=== PATIENT | male | born 1965 | race Caucasian/White ===

== ENCOUNTER 2018-02-15 20:37 | Emergency (ER) | payer OTHER ==
[2018-02-15] MEDS ORDERED: Tetracaine HCl/PF 0.5% 4 ML Bottle EYEBOTH ONE (21:41)
[2018-02-15] MEDS ORDERED: Fluorescein 1 MG Ophth Strip EYEBOTH ONE (21:42)
[2018-02-15] MEDS ORDERED: Sulfacetamide 10% Ophth Soln 15 ML Bottle EYELF ONE (22:10)
--- NOTE | 2018-02-15 22:12 | EDM.PDOC ---
ED HPI GENERAL MEDICAL PROBLEM - General Chief Complaint: Eye Problems Stated Complaint: [id number] SOMETHING IN EYE Time Seen by Provider: 02/15/18 21:46 Source of Information: Reports: Patient, RN, RN Notes Reviewed History Limitations: Reports: No Limitations - History of Present Illness INITIAL COMMENTS - FREE TEXT/NARRATIVE: Pt to ER with c/o getting something in his eye. Patient states this happened over an hour ago while he was under a car changing oil. He states he rinsed the eye with tap water and Refresh eye drops. He states he has felt a scratching sensation. He states he had some blurred vision earlier, but is just cloudy here and there right now. Onset: Today, Sudden Left Eye Pain Score (Numeric/FACES): 6 - Related Data Allergies Allergy/AdvReac Type Severity Reaction Status Date / Time No Known Allergies Allergy Verified 02/15/18 21:00 Home Meds: Home Meds . [No Known Home Meds] 02/15/18 [History] Past Medical History Musculoskeletal History: Reports: Fracture Social & Family History - Tobacco Use Smoking Status *Q: Never Smoker Second Hand Smoke Exposure: No - Recreational Drug Use Recreational Drug Use: No ED ROS GENERAL - Review of Systems Review Of Systems: ROS reveals no pertinent complaints other than HPI. ED EXAM GENERAL W FULL EYE - Physical Exam Exam: See Below Eye Exam: Right Eye: Normal Inspection, Left Eye: Conjunctival Injection, Vision Changes (Cloudy areas come and go), Bilateral Eye: PERRL (4 brisk) Visual Acuity (R) 20/: 50 Visual Acuity (L) 20/: 70 With Correction: No Eyelids: Bilateral: Normal Appearance Pupils: Normal Accommodation Pupillary Size: Bilateral: 4 mm Pupillary Reaction: Bilateral: Brisk Ears: Normal External Exam, Hearing Grossly Normal Nose: Normal Inspection Throat/Mouth: Normal Inspection, Normal Voice, No Airway Compromise Head: Atraumatic, Normocephalic Neck: Normal Inspection, Supple, Non-Tender, Full Range of Motion Respiratory/Chest: No Respiratory Distress, Lungs Clear, Normal Breath Sounds, No Accessory Muscle Use, Chest Non-Tender Cardiovascular: Normal Peripheral Pulses, Regular Rate, Rhythm GI/Abdominal: Normal Bowel Sounds, Soft, Non-Tender (Male) Exam: Deferred Rectal (Males) Exam: Deferred Back Exam: Normal Inspection, Full Range of Motion Extremities: Normal Inspection, Normal Range of Motion, Non-Tender, No Pedal Edema, Normal Capillary Refill Neurological: Alert, Oriented, CN II-XII Intact, Normal Cognition, Normal Gait, Normal Reflexes, No Motor/Sensory Deficits Psychiatric: Normal Affect, Normal Mood Skin Exam: Warm, Dry, Intact, Normal Color, No Rash Lymphatic: No Adenopathy ED EYE w/ Add Procedure - Eye Procedure Alcaine Drops Administered: Yes Eye FB Removal: Removal w/ Cotton Swab Eye Irrigated w/ Saline (ccs): 2 Antibiotic Oinment/Drps Admin: Left Eye Course - Vital Signs Last Recorded V/S: Last Vital Signs Temp 96.8 F 02/15/18 20:56 Pulse 79 02/15/18 20:56 Resp 18 02/15/18 20:56 BP 120/70 02/15/18 20:56 Pulse Ox 96 02/15/18 20:56 - Orders/Labs/Meds Meds: Medications Discontinued Medications Generic Name Dose Route Start Last Admin Trade Name Ginny PRN Reason Stop Dose Admin Fluorescein Sodium 1 mg 02/15/18 21:42 02/15/18 21:53 Ful-Za EYEBOTH 02/15/18 21:43 1 mg ONETIME ONE Administration Sulfacetamide 1 ml 02/15/18 22:10 02/15/18 22:27 Bleph-10 Ophth Soln EYELF 02/15/18 22:11 1 ml ONETIME ONE Administration Tetracaine HCl 1 ml 02/15/18 21:41 02/15/18 21:53 Tetracaine 0.5% Steri-Unit Yennifer EYEBOTH 02/15/18 21:42 1 ml ASDIRECTED ONE Administration Departure - Departure Time of Disposition: 22:10 Disposition: Home, Self-Care 01 Condition: Fair Clinical Impression: Corneal abrasion Qualifiers: Encounter type: initial encounter Laterality: left Qualified Code(s): S05.02XA - Injury of conjunctiva and corneal abrasion without foreign body, left eye, initial encounter - Discharge Information Instructions: Eye Foreign Body, [id number], Corneal Abrasion, [id number] Referrals: PCP,None [Ordering Only Provider] - Forms: ED Department Discharge Additional Instructions: Eye drops 1-2 drops every 2-3 hours for 7-10 days Follow up with optometry
== END 2018-02-15 22:32 | disposition home or self-care (01) ==
LOC: DL.ED 20:37
DX: T15.02XA Foreign body in cornea, left eye, initial encounter (principal); X58.XXXA Exposure to other specified factors, initial encounter
CPT/HCPCS: 65220; 99283; A9270

== ENCOUNTER 2018-10-13 16:40 | Emergency (ER) | payer OTHER ==
[2018-10-13] MEDS ORDERED: Polymyxin B/Trimethoprim 10 ML Bottle EYERT ONE (16:41)
[2018-10-13] MEDS ORDERED: Acetaminophen/HYDROcodone 325-5 MG Tab PO ONE (16:41)
[2018-10-13] MEDS ORDERED: Fluorescein 1 MG Ophth Strip EYERT ONE (16:56)
[2018-10-13] MEDS ORDERED: Tetracaine HCl/PF 0.5% 4 ML Bottle EYERT ONE (16:56)
[2018-10-13] MEDS ORDERED: Ibuprofen 600 MG Tab PO ONE (17:06)
[2018-10-13] MEDS ORDERED: Erythromycin Base 0.5% Ophth Oint 3.5 GM Tube EYERT ONE (17:11)
--- NOTE | 2018-10-13 17:13 | EDM.PDOC ---
ED HPI GENERAL MEDICAL PROBLEM - General Chief Complaint: Eye Problems Stated Complaint: SOMETHING IN EYE Time Seen by Provider: 10/13/18 17:02 Source of Information: Reports: Patient History Limitations: Reports: No Limitations - History of Present Illness INITIAL COMMENTS - FREE TEXT/NARRATIVE: leticia comes emergency department today with complaints of a foreign object in his right eye. Just prior to arrival the patient was at home when he was cutting some blood and he had something fly into his eyes despite using safety goggles. He has a little bit of blurry vision but otherwise his acuity is unchanged. His tetanus shot is up-to-date. He has not been grinding any metal. Right Eye Pain Score (Numeric/FACES): 8 - Related Data Allergies Allergy/AdvReac Type Severity Reaction Status Date / Time No Known Allergies Allergy Verified 10/13/18 16:55 Home Meds: Home Meds Multivitamins [Tab-A-Rob] 1 each PO DAILY 10/13/18 [History] Past Medical History HEENT History: Reports: None Cardiovascular History: Reports: None Respiratory History: Reports: None Gastrointestinal History: Reports: None Genitourinary History: Reports: None Musculoskeletal History: Reports: Fracture Neurological History: Reports: None Psychiatric History: Reports: None Endocrine/Metabolic History: Reports: None Hematologic History: Reports: None Immunologic History: Reports: None Oncologic (Cancer) History: Reports: None Dermatologic History: Reports: None Social & Family History - Tobacco Use Smoking Status *Q: Never Smoker - Recreational Drug Use Recreational Drug Use: No ED ROS GENERAL - Review of Systems Review Of Systems: ROS reveals no pertinent complaints other than HPI. ED EXAM GENERAL W FULL EYE - Physical Exam Exam: See Below Exam Limited By: No Limitations General Appearance: Alert, WD/WN, No Apparent Distress Eye Exam: Right Eye: Conjunctival Injection, Corneal Abrasion (with floor seen drops I was able to identify at the9 o'clock positiona transverseapproximately 1 cm corneal abrasion no foreign material identified on the cornea.), Bilateral Eye: EOMI, PERRL Cornea Exam: Right: Corneal Abrasion, Examined with Flourescein Extraocular Movements: Bilateral: Intact Pupils: Normal Accommodation Pupillary Size: Bilateral: 3 mm Pupillary Reaction: Bilateral: Brisk Ears: Normal External Exam, Normal Canal, Normal TMs Nose: Normal Inspection, Normal Mucosa Throat/Mouth: Normal Inspection, Normal Lips, Normal Oropharynx Head: Atraumatic, Normocephalic Course - Vital Signs Last Recorded V/S: Last Vital Signs Temp 36.8 C 10/13/18 16:51 Pulse 94 10/13/18 16:51 Resp 16 10/13/18 16:51 BP 132/86 10/13/18 16:51 Pulse Ox 97 10/13/18 16:51 - Orders/Labs/Meds Meds: Medications Discontinued Medications Generic Name Dose Route Start Last Admin Trade Name Ginny PRN Reason Stop Dose Admin Hydrocodone Bitart/Acetaminophen Confirm 10/13/18 17:26 [place] 325-10 Mg Administered 10/13/18 17:27 Dose 2 tab .ROUTE .STK-MED ONE Hydrocodone Bitart/Acetaminophen Confirm 10/13/18 17:28 10/13/18 17:39 [place] 325-5 Mg Administered 10/13/18 17:29 Not Given Dose 2 tab .ROUTE .STK-MED ONE Ciprofloxacin 2 gm 10/13/18 18:00 Ciloxan 0.3% EYERT Q4HR GIGI Erythromycin 1 gm 10/13/18 17:11 10/13/18 17:38 Erythromycin 0.5% Ophth Oint EYERT 10/13/18 17:12 Not Given ONETIME ONE Fluorescein Sodium 1 mg 10/13/18 16:56 10/13/18 17:04 Ful-Za EYERT 10/13/18 16:57 1 mg ONETIME ONE Administration Ibuprofen 600 mg 10/13/18 17:06 10/13/18 17:38 Motrin PO 10/13/18 17:07 600 mg ONETIME ONE Administration Polymyxin/Trimethoprim Sulfate Confirm 10/13/18 17:25 10/13/18 17:38 Polytrim Ophth Soln Administered 10/13/18 17:26 Not Given Dose 10 ml .ROUTE .STK-MED ONE Tetracaine HCl 2 ml 10/13/18 16:56 10/13/18 17:04 Tetracaine 0.5% Steri-Unit Yennifer EYERT 10/13/18 16:57 5 drop ASDIRECTED ONE Administration - Re-Assessments/Exams Free Text/Narrative Re-Assessment/Exam: 10/13/18 19:51 tetracaine was used to initially anesthetized the eye. Fluorescein was used to identify the corneal abrasion on the right 9 o'clock position of the cornea. The eye was rinsed with copious amounts of sterile saline. It was inspected thoroughly and no foreign material or objects are identified under the lids or on the cornea. He was given ibuprofen for pain as well as a prescription for pain medicine at home. Antibiotics as well. If he is not improving as described specifically in the discharge instructions he is to see optometry or ophthalmology. He is comfortable with this plan and his questions are answered. Departure - Departure Time of Disposition: 17:07 Disposition: Home, Self-Care 01 Clinical Impression: Corneal abrasion Qualifiers: Encounter type: initial encounter Laterality: left Qualified Code(s): S05.02XA - Injury of conjunctiva and corneal abrasion without foreign body, left eye, initial encounter - Discharge Information Instructions: Corneal Abrasion, [id number] Forms: ED Department Discharge Additional Instructions: Tylenol and or Ibuprofen as needed for pain. If pain not controlled with above. [place], 1 tablet every 6 hrs with food as needed for pain. Caution sedation. RX given to the patient #12. Erythromycin ointment to the right eye 4 times a day for the next 5 days. RX given. No contact lenses until symptoms resolve. in 24 hours you should be 90% better and 48 hrs 100% better. If you are not meeting that standard recheck with optometry or opthamology. Return to the ED if new or worsening symptoms. Follow up as above or as needed. - Assessment/Plan Assessment:: Right corneal abrasion. Plan: Tylenol and or Ibuprofen as needed for pain. If pain not controlled with above. [place], 1 tablet every 6 hrs with food as needed for pain. Caution sedation. RX given to the patient #12. Erythromycin ointment to the right eye 4 times a day for the next 5 days. RX given. No contact lenses until symptoms resolve. in 24 hours you should be 90% better and 48 hrs 100% better. If you are not meeting that standard recheck with optometry or opthamology. Return to the ED if new or worsening symptoms. Follow up as above or as needed.
[2018-10-13] MEDS ORDERED: Polymyxin B/Trimethoprim 10 ML Bottle ONE (17:25)
[2018-10-13] MEDS ORDERED: Acetaminophen/HYDROcodone 325-10 MG Tab ONE (17:26)
[2018-10-13] MEDS ORDERED: Acetaminophen/HYDROcodone 325-5 MG Tab ONE (17:28)
[2018-10-13] MEDS ORDERED: Ciprofloxacin 0.3% Oint 3.5 GM Tube EYERT SCH (18:00)
== END 2018-10-13 17:42 | disposition home or self-care (01) ==
LOC: DL.ED 16:40
DX: S05.02XA Injury of conjunctiva and corneal abrasion without foreign body, left eye, initial encounter (principal); X58.XXXA Exposure to other specified factors, initial encounter
CPT/HCPCS: 99283; A9270

== ENCOUNTER 2025-02-08 05:53 | Emergency (ER) | payer OTHER ==
[2025-02-08] MEDS ORDERED: Sodium Chloride 0.9% 10 ML Syringe FLUSH PRN (06:20)
[2025-02-08] MEDS: Aspirin 81 MG Tab.Chew PO ONE (06:26)
[2025-02-08 06:29] LABS: BASOPHILS PERCENT AUTO 0.3 % (0.0-1.0); EOSINOPHILS PERCENT AUTO 3.4 % (1.0-3.0); HEMOGLOBIN 18.1 g/dL (14.0-18.0); LYMPHOCYTES PERCENT AUTO 28.8 % (20.5-50.1); MEAN CORPUSCULAR HEMOGLOBIN 32.9 pg (27.0-34.0); MEAN CORPUSCULAR HGB CONC 36.2 g/dL (33.0-35.0); MEAN CORPUSCULAR VOLUME 90.9 fL (80-100); MONOCYTES PERCENT AUTO 7.3 % (2-8); NEUTROPHILS PERCENT AUTO 60.2 % (42.2-75.2); PLATELET COUNT,PLT 163 10^3/uL (150-450); WHITE BLOOD CELL COUNT,WBC 6.2 10^3/uL (5.0-10.0)
[2025-02-08 06:46] LABS: A/G RATIO 1.2; ALBUMIN 3.6 g/dL (3.4-5.0); ANION GAP 9.1 mEq/L (7-13); BUN/CREATININE RATIO 15.5 (No establ ref range); CALCIUM 8.9 mg/dL (8.5-10.1); CREATININE 1.03 mg/dL (0.70-1.30); EST CRCL DRUG DOSING (CG) 81.7 mL/min; POTASSIUM,K 4.1 mmol/L (3.5-5.1); PROTEIN TOTAL,TP 6.6 g/dL (6.4-8.2)
[2025-02-08 07:05] LABS: PROTHROMBIN TIME 10.2 SEC (9.0-12.0)
== END 2025-02-08 08:32 | disposition home or self-care (01) ==
LOC: DL.ED 05:53
DX: R07.2 Precordial pain (principal); Z79.899 Other long term (current) drug therapy
CPT/HCPCS: 36415; 71045; 80053; 83880; 84484; 85025; 85610; 85730; 93005; 93010; 99284; 99285; A9270-GY